=== PATIENT | male | born 1950 | race Caucasian/White ===

== ENCOUNTER 2019-03-15 08:54 | Emergency (ER) | payer BC ==
[2019-03-15 09:18] VITALS: BP 172/107
--- NOTE | 2019-03-15 09:42 | ED ---
Abdominal Pain/Male - HPI Summary HPI Summary: 68 yr old male with the complaint of left lower abdominal pain, left side back pain, and constipation. The patient has had pain for about five to six days. The patient has had no good BM for several days. He has abdominal distention and pain is worse with drinking water. He states pain is also worse with some movement. He denies fever and chills. He states he had a colonoscopy in the past a recently as 2016 and it was ok. - History of Current Complaint Chief Complaint: UCGI Stated Complaint: BACK PAIN Time Seen by Provider: 03/15/19 09:20 Pain Intensity: 6 - Allergies/Home Medications Allergies/Adverse Reactions: Allergies Allergy/AdvReac Type Severity Reaction Status Date / Time No Known Allergies Allergy Verified 03/15/19 09:12 Home Medications: Home Medications Aspirin TAB* [Aspirin 325 MG TAB*] 650 mg PO Q6H PRN 03/15/19 [History Confirmed 03/15/19] Psyllium ALTON* [Metamucil ALTON*] 1 pkt PO DAILY PRN 03/15/19 [History Confirmed ] PMH/Surg Hx/FS Hx/Imm Hx Previously Healthy: Yes Cardiovascular History: Reports: Hx Hypertension - not medicated - Surgical History Surgery Procedure, Year, and Place: Right Inguinal Hernirrhaphy, 1951 Infectious Disease History: No Infectious Disease History: Denies: Traveled Outside the [place] in Last 30 Days - Family History Known Family History: Positive: Other - pancreatic cancer Negative: Renal Disease - Social History Occupation: Employed Full-time - with [place] [employer] Alcohol Use: None Substance Use Type: Reports: None Smoking Status (MU): Former Smoker Type: Cigarettes Amount Used/How Often: 1 PPD Length of Time of Smoking/Using Tobacco: 49 Years Have You Smoked in the Last Year: No Review of Systems Constitutional: Negative Positive: Abdominal Pain All Other Systems Reviewed And Are Negative: Yes Physical Exam Triage Information Reviewed: Yes Vital Signs On Initial Exam: Initial Vitals Temp Pulse Resp BP Pulse Ox 99.1 F 73 16 172/107 97 03/15/19 09:13 03/15/19 09:13 03/15/19 09:13 03/15/19 09:13 03/15/19 09:13 Vital Signs Reviewed: Yes Appearance: Positive: Well-Appearing, No Pain Distress Skin: Positive: Warm, Skin Color Reflects Adequate Perfusion Head/Face: Positive: Normal Head/Face Inspection Eyes: Positive: EOMI ENT: Positive: Normal ENT inspection Neck: Positive: Nontender Respiratory/Lung Sounds: Positive: Clear to Auscultation, Breath Sounds Present Cardiovascular: Positive: RRR. Negative: Murmur Abdomen Description: Positive: Distended, Other: - some tenderness over the left lower abdomen.. Negative: CVA Tenderness (R), CVA Tenderness (L) Male Genital Exam: Positive: Normal Genitalia, No Hernia. Negative: Inguinal Tenderness, Scrotum Tenderness (R), Scrotum Tenderness (L), Testicular Tenderness (R), Testicular Tenderness (L), Urethral Discharge Musculoskeletal: Positive: Strength/ROM Intact Neurological: Positive: Sensory/Motor Intact, Alert, Oriented to Person Place, Time, CN Intact II-III Psychiatric: Positive: Normal Diagnostics - Vital Signs Vital Signs Temp Pulse Resp BP Pulse Ox 03/15/19 09:13 99.1 F 73 16 172/107 97 - Laboratory Lab Statement: Any lab studies that have been ordered have been reviewed, and results considered in the medical decision making process. Abdominal Pain Male Course/Dx - Course Course Of Treatment: 68 yr old with left lower quadrant abdominal pain. He was offered an ambulace to the ER but it was declined. He is going with his to [facility]. - Diagnoses Provider Diagnoses: Left flank pain, Left lower quadrant abdominal pain Discharge ED - Sign-Out/Discharge Documenting (check all that apply): Patient Departure All imaging exams completed and their final reports reviewed: No Studies - Discharge Plan Condition: Good Disposition: HOME-RECOMMEND TO ED Patient Education Materials: Abdominal Pain (ED), Hypertension (ED) Referrals: Nazanin Power MD [Primary Care Provider] - 1 Day Additional Instructions: YOU NEED TO GO TO THE ER FOR FURTHER WORK UP OF YOUR ABDOMINAL AND BACK PAIN and CONSTIPATION. DO NOT DELAY GOING. GO RIGHT NOW. - Billing Disposition and Condition Condition: GOOD Disposition: Home-Recommend to ED
== END 2019-03-15 09:43 | disposition home health service (06) ==
LOC: UCCORT 08:54
DX: R10.32 Left lower quadrant pain (principal); M54.5 Low back pain; I10 Essential (primary) hypertension; Z87.891 Personal history of nicotine dependence
CPT/HCPCS: 99212; G0463